=== PATIENT | male | born 1950 | race African-American/Black ===

== ENCOUNTER → 2017-07-07 | Outpatient (CLI) | payer BC, MEDICARE ==
[2016-03-04 08:55] VITALS: BP 128/82
[~2017-07-07] MED LIST: AMLO1TAB93 PO; CRESTOR20 MG PO; INSU100C SQ; INSU100V13 SQ; LIPA1CAP4 PO; LISI-334 PO; METF500T4 PO; RIVA10TA PO; RIVA20TA2 PO; SOTA80TA48 PO; TADA5TAB PO
--- NOTE | 2017-07-07 15:51 | CARD ---
MR#: [id number] Date of Study: 07/07/2017 Ordering Physician: SHAMA LI, Referring Physician: SHAMA LI, Mani: Katerin Hebert APPROVED REPORT EXAM: Two-dimensional and M-mode echocardiogram with Doppler and color Doppler. Other Information Quality : Good INDICATION Abnormal ECG Afib 2D DIMENSIONS Left Atrium(2D)4.1 (1.6-4.0cm)IVSd0.8 (0.7-1.1cm) Aortic Root(2D)3.3 (2.0-3.7cm)LVDd6.7 (3.9-5.9cm) LVOT Diameter2.1 (1.8-2.4cm)PWd0.9 (0.7-1.1cm) LVDs3.5 (2.5-4.0cm)FS (%) 46.8 % SV176.2 mlLVEF(%)77.1 (>50%) Aortic Valve AoV Peak Buck.134.0cm/sAoV VTI28.4cm AO Peak GR.7.2mmHgLVOT Peak Buck.69.1cm/s LVOT VTI 14.92cmAO Mean GR.4mmHg SILVIO (VMAX)1.15hx4YCH (VTI)1.78cm2 Mitral Valve MV E Ufhbfivj91.6cm/sMV A Hyzxkyko694.9cm/s E/A Ratio0.7 TDI E/Lateral E'10.8E/Medial E'11.6 Pulmonary Valve PV Peak Klhmtvrm870.2cm/sPV Peak Grad.5mmHg Tricuspid Valve TR P. Gpezkskd02gi/sRAP BZBIPTHO60ybJi TR Peak Gr.15yoXdJWJF3imIr LEFT VENTRICLE The Left Ventricle is moderately dilated. There is normal left ventricular wall thickness. The left v entricular systolic function is normal. The Ejection Fraction is 65-70%. There is normal LV segmental wall motion. Transmitral Doppler flow pattern is Grade I-abnormal relaxation pattern. RIGHT VENTRICLE The right ventricle is normal size. The right ventricular systolic function is normal. ATRIA The left atrium is mildly dilated. The right atrium size is normal. The interatrial septum is intact with no evidence for an atrial septal defect or patent foramen ovale as noted on 2-D or Doppler imagi ng. AORTIC VALVE The aortic valve is mildly thickened. Doppler and Color Flow revealed trace aortic regurgitation. The re is no significant aortic valvular stenosis. MITRAL VALVE Mitral annular calcification is mild. There is no evidence of mitral valve prolapse. There is no mitr al valve stenosis. Doppler and Color-flow revealed trace mitral regurgitation. TRICUSPID VALVE The tricuspid valve is normal in structure and function. Doppler and Color Flow revealed mild tricusp id regurgitation. PULMONIC VALVE The pulmonary valve is normal in structure and function. Doppler and Color Flow revealed trace pulmon ic valvular regurgitation. GREAT VESSELS The aortic root is normal in size. The ascending aorta is normal in size. The IVC is normal in size a nd collapses >50% with inspiration. PERICARDIAL EFFUSION There is no pleural effusion. There is no evidence of significant pericardial effusion. Critical Notification Critical Value: No <Conclusion> The left ventricular systolic function is normal. The Ejection Fraction is 65-70%. There is normal LV segmental wall motion. Transmitral Doppler flow pattern is Grade I-abnormal relaxation pattern. Trace aortic regurgitation. Trace mitral regurgitation. Mild tricuspid regurgitation. There is no evidence of significant pericardial effusion. Signed by : Shama Li, Electronically Approved : 07/07/2017 15:50:27
== END | disposition home or self-care (01) ==
LOC: ECHO 13:32
PROVIDERS: ATTEND Internal Medicine Cardiovascular Disease
DX: I48.91 Unspecified atrial fibrillation (principal); I07.1 Rheumatic tricuspid insufficiency; R94.31 Abnormal electrocardiogram [ECG] [EKG]
CPT/HCPCS: 93306

== ENCOUNTER 2018-12-23 09:43 | Emergency (ER) | payer MEDICARE ==
[~2018-12-23] VITALS: Ht 170.2 cm; Wt 108.9 kg
[~2018-12-23 09:43] MED LIST changes: +METF500T16 PO; -METF500T4 PO
[2018-12-23 09:46] VITALS: BP 163/79
[2018-12-23] MEDS ORDERED: LIDOCAINE 1% Multi-Dose 20 ML VIAL. INJ ONE (10:15)
--- NOTE | 2018-12-23 11:08 | PHYS DOC ---
Past Medical History Past Medical History: A-Fib, Diabetes-Type II, High Cholesterol, Hypertension (KIRILL JAFFE APRN) Past Surgical History: No Surgical History (KIRILL JAFFE APRN) Alcohol Use: None Drug Use: None (KIRILL JAFFE APRN) Adult General Chief Complaint Chief Complaint: LACERATION/AVULSION HPI HPI 68-year-old male presents to ER for complaints of laceration to right great toe. Patient reports he had flip-flops on and he was walking down steps when the flip-flop caused him to slip causing him to strike his toe on the concrete step. Patient denies completely falling. Patient denies any other injury. Pt is on daily Xarelto and 81 mg aspirin for history of A. fib. (KIRILL JAFFE APRN) Review of Systems Review of Systems Constitutional: Denies fatigue Musculoskeletal: Denies back/neck pain. Reports lt great toe laceration Integument: Denies bruising/abrasions Neurologic: Denies focal weakness or sensory changes [] All other systems were reviewed and found to be within normal limits, except as documented in this note. (KIRILL JAFFE APRN) Current Medications Current Medications Current Medications Medications (Trade) Dose Ordered Sig/Wayne Start Time Stop Time Status Last Admin Dose Admin Lidocaine HCl (Lidocaine 1% 20ml Vial) 20 ml 1X ONCE 12/23/18 10:15 12/23/18 10:16 DC 12/23/18 10:32 20 ML (MARIO REECE MD) Allergies Allergies Allergies Coded Allergies Type Severity Reaction Last Updated Verified No Known Drug Allergies 03/04/16 No (MARIO REECE MD) Physical Exam Physical Exam Constitutional: Well developed, well nourished, no acute distress, non-toxic appearance. [] HENT: Normocephalic, atraumatic, oropharynx moist, nose normal. [] Eyes: Pupils equal, conjunctiva normal, no discharge. [] Neck: Normal range of motion, supple Cardiovascular:Heart rate regular Lungs & Thorax: Resp. equal/nonlabored Skin: Warm, dry Extremities: No cyanosis, no clubbing, ROM intact, no edema. 2+ posterior tibial/dorsalis pedis bilat. LE. Laceration to plantar surface of lt great toe- sm. amt of active bleeding at time of exam. Flexor tendon intact against resistance. Neurologic: Alert and oriented X 3, normal motor function, normal sensory funct ion, no focal deficits noted. [] Psychologic: Affect normal, judgement normal, mood normal. [] (KIRILL JAFFE APRN) Current Patient Data Vital Signs Vital Signs Date Time Temp Pulse Resp B/P (MAP) Pulse Ox O2 Delivery O2 Flow Rate FiO2 12/23/18 09:46 97.6 83 20 163/79 (107) 99 Room Air 97.6 (MARIO REECE MD) EKG EKG [] (KIRILL JAFFE APRN) Radiology/Procedures Radiology/Procedures PROCEDURE: TOES LEFT Left great toe x-rays 3 views HISTORY: Left great toe injury. FINDINGS: Osteoarthritis with joint space narrowing, bony sclerosis and osteophytes at the first MTP joint. No fracture or dislocation. There are very tiny submm in size numerous punctate densities along the medial and plantar aspect of the great toe overlying the base of the distal phalanx uncertain if this is something on the skin surface versus dystrophic soft tissue calcifications versus tiny radiopaque foreign bodies from a penetrating injury. IMPRESSION: No acute osseous injury. Osteoarthritis of the first MTP joint. Punctate densities of the soft tissues of the great toe as described above. Electronically signed by: Marichuy Lund MD (12/23/2018 11:13 AM) [facility] DICTATED and SIGNED BY: MARICHUY LUND MD DATE: 12/23/18 1113 Laceration Repair by me: 1130 Anesthesia: 1% lidocaine locally 3mL Location: Plantar surface of lt great toe Tendon/Joint/Nerves: No injury- flexor/extension tendon intact against resistance Foreign body: None detected after copious irrigation and exploration Technique: Simple Interrupted Sutures 4.0 Nylon #11 Complexity: No subcutaneous sutures/mucosal repair/edge excision Post Closure Length: 6 cm Patient's bleeding was easily controlled in the department and there is no indication of anemia. No evidence of compartment syndrome, neurologic injury, vascular injury, open joint, tendon laceration, or foreign body. Patient is appropriate for outpatient follow up. 48 hour wound check. Scar minimization instructions given. (KIRILL JAFFE APRN) Course & Med Decision Making Course & Med Decision Making Pertinent Imaging studies reviewed. (See chart for details) Patient was evaluated in the ER for complaints of laceration to plantar surface of left great toe. Xray obtained no acute fxs- was noted possible possible small foreign bodies. Wound was thoroughly cleansed and irrigated and no foreign bodies were found on exam. Patient remained PMS intact in left lower extremity prior to and following lac repair. Patient had minimal blood loss during repair. Patient had no obvious tendon injury. Patient advised on home wound care. Patient will be placed in Ortho shoe to prevent tension on sutures. Discussed use of crutches however both patient and his are concerned for increased fall risk- pt not wanting crutches. Patient advised on follow-up with his primary care physician in 8-10 days for suture removal. Education provided on signs and symptoms to return to ER. Discharge instructions were discussed. Patient to follow-up with primary care physician with any concerns. (KIRILL JAFFE APRN) Course & Med Decision Making Staff Physician Addendum: I was working in the ER during the course of this patient's visit. I was available for consultation as needed, but I was not directly involved in the care of this patient. (MARIO REECE MD) Dragon Disclaimer Dragon Disclaimer This electronic medical record was generated, in whole or in part, using a voice recognition dictation system. (KIRILL JAFFE APRN) Departure Departure Impression: Primary Impression: Toe laceration Disposition: 01 HOME, SELF-CARE Condition: STABLE Referrals: VAL WADSWORTH MD (PCP) Patient Instructions: Laceration Care, Adult, Sutured Wound Care Additional Instructions: Wear ortho shoe while walking to prevent tension on the stitches. Tylenol as needed for pain relief as directed on container. Keep wound dry and clean for 24 hours and then shower regular. Avoid soaking wound or swimming until stitches are removed. Follow up with your primary care physician in 8-10 days for stitches to be removed. Follow-up sooner with any concerns. KIRILL JAFFE APRN Dec 23, 2018 11:08 MARIO REECE MD Dec 25, 2018 18:09
--- NOTE | 2018-12-23 11:16 | RAD ---
Left great toe x-rays 3 views HISTORY: Left great toe injury. FINDINGS: Osteoarthritis with joint space narrowing, bony sclerosis and osteophytes at the first MTP joint. No fracture or dislocation. There are very tiny submm in size numerous punctate densities along the medial and plantar aspect of the great toe overlying the base of the distal phalanx uncertain if this is something on the skin surface versus dystrophic soft tissue calcifications versus tiny radiopaque foreign bodies from a penetrating injury. IMPRESSION: No acute osseous injury. Osteoarthritis of the first MTP joint. Punctate densities of the soft tissues of the great toe as described above. Electronically signed by: Tariq Lund MD (12/23/2018 11:13 AM) [facility]
== END 2018-12-23 12:18 | disposition home or self-care (01) ==
LOC: ER 09:43
DX: S91.111A Laceration without foreign body of right great toe without damage to nail, initial encounter (principal); E11.9 Type 2 diabetes mellitus without complications; I48.91 Unspecified atrial fibrillation; E78.00 Pure hypercholesterolemia, unspecified; I10 Essential (primary) hypertension; W01.198A Fall on same level from slipping, tripping and stumbling with subsequent striking against other object, initial encounter; Y93.89 Activity, other specified; Y92.89 Other specified places as the place of occurrence of the external cause; Y99.8 Other external cause status
CPT/HCPCS: 12002; 73660; 99284

== ENCOUNTER → 2019-01-14 | Outpatient (CLI) | payer MEDICARE ==
[2018-12-23 09:46] VITALS: BP 163/79
--- NOTE | 2019-01-14 15:35 | CARD ---
MR#: [id number] Date of Study: 01/14/2019 Ordering Physician: SHAMA PANTOJA, Referring Physician: SHAMA PANTOJA Tech: Stella Rodriguez [place] APPROVED REPORT EXAM: Two-dimensional and M-mode echocardiogram with Doppler and color Doppler. Other Information Quality : AverageHR: 78bpm Rhythm : NSR INDICATION Atrial Fibrillation 2D DIMENSIONS RVDd3.9 (2.9-3.5cm)Left Atrium(2D)4.5 (1.6-4.0cm) IVSd1.4 (0.7-1.1cm)Aortic Root(2D)3.5 (2.0-3.7cm) LVDd4.8 (3.9-5.9cm)LVOT Diameter2.4 (1.8-2.4cm) PWd1.1 (0.7-1.1cm)LVDs3.1 (2.5-4.0cm) FS (%) 35.8 %SV71.6 ml LVEF(%)65.2 (>50%) M-Mode DIMENSIONS Left Atrium(MM)4.57 (2.5-4.0cm)Aortic Root3.63 (2.2-3.7cm) Aortic Valve AoV Peak Buck.145.0cm/sAoV VTI25.8cm AO Peak GR.8.4mmHgLVOT Peak Buck.107.5cm/s AO Mean GR.4mmHgAVA (VMAX)3.26cm2 SILVIO (VTI)3.20cm2 Mitral Valve MV E Phmwydgv77.2cm/sMV DECEL OLUU364lr MV A Jrbslyuc08.7cm/sE/A Ratio0.9 Pulmonary Valve PV Peak Wxmxtqfi069.4cm/s Tricuspid Valve TR P. Xlyqzzqm251yr/sRAP CVPGRJZV4rrWe TR Peak Gr.19msUdMKKC13acCl LEFT VENTRICLE The left ventricle is normal size. There is mild concentric left ventricular hypertrophy. The left ve ntricular systolic function is normal and the ejection fraction is within normal range. The Ejection Fraction is 60-65%. There is normal LV segmental wall motion. Transmitral Doppler flow pattern is Gra de I-abnormal relaxation pattern. RIGHT VENTRICLE The right ventricle is mildly dilated. There is normal right ventricular wall thickness. The right ve ntricular systolic function is normal. ATRIA The left atrium is mildly dilated. The right atrium is mildly dilated. The interatrial septum is inta ct with no evidence for an atrial septal defect or patent foramen ovale as noted on 2-D or Doppler im aging. AORTIC VALVE The aortic valve is normal in structure and function. The aortic valve is trileaflet. Doppler and Col or Flow revealed trace to mild aortic regurgitation. There is no significant aortic valvular stenosis . MITRAL VALVE The mitral valve is normal in structure and function. There is no evidence of mitral valve prolapse. There is no mitral valve stenosis. Doppler and Color-flow revealed trace mitral regurgitation. TRICUSPID VALVE The tricuspid valve is normal in structure and function. Doppler and Color Flow revealed trace tricus pid regurgitation. The PA pressure was estimated at 31 mmHg. There is no tricuspid valve prolapse or vegetation. There is no tricuspid valve stenosis. PULMONIC VALVE The pulmonary valve is normal in structure and function. Doppler and Color Flow revealed mild pulmoni c valvular regurgitation. There is no pulmonic valvular stenosis. GREAT VESSELS The aortic root is normal in size. The ascending aorta is Mildly dilated at 3.8cm. The IVC is normal in size and collapses >50% with inspiration. PERICARDIAL EFFUSION There is no evidence of significant pericardial effusion. Critical Notification Critical Value: No <Conclusion> The left ventricular systolic function is normal and the ejection fraction is within normal range. Th e Ejection Fraction is 60-65%. There is normal LV segmental wall motion. Doppler and Color Flow revealed mild pulmonic valvular regurgitation. The ascending aorta is Mildly dilated at 3.8cm. Signed by : Barron Aguilar, Electronically Approved : 01/14/2019 15:35:39
== END | disposition home or self-care (01) ==
LOC: ECHO 13:42
PROVIDERS: ATTEND Internal Medicine Cardiovascular Disease
DX: I08.8 Other rheumatic multiple valve diseases (principal); I48.91 Unspecified atrial fibrillation
CPT/HCPCS: 93306